=== PATIENT | male | born 1980 | race Caucasian/White ===

== ENCOUNTER 2022-08-08 11:18 | Emergency (ER) | payer SELFPAY ==
[2022-08-08 12:42] LABS: Bilirubin Neg (Negative); Blood, Urine Negative (Negative); Clarity Clear (Clear); Glucose, Urine (Dipstick) Normal (Negative); Ketone, Urine Negative (Negative); Leukocyte Negative (Negative); Nitrite Negative (Negative); Protein, Urine (Dipstick) 15 mg/dl (Neg-Trace); Specific Gravity, Urine 1.025 (1.005-1.030); Urobilinogen Normal mg/dL (Less than 2)
[2022-08-08] MEDS ORDERED: cefTRIAXone (ROCEPHIN) 500 MG VIAL ONE (14:36)
[2022-08-08] MEDS ORDERED: Acetaminophen 500 MG TAB ONE (15:16)
[2022-08-08] MEDS ORDERED: Ibuprofen 200 MG TAB ONE (15:16)
[2022-08-09 00:55] LABS: Chlam.trachomatis by PCR,Urine Not Detected (NotDetected); GC N.gonorrhoeae PCR,UrineVOID Not Detected (NotDetected)
== END 2022-08-08 15:20 | disposition home or self-care (01) ==
LOC: CSHERS 11:18
DX: N45.1 Epididymitis (principal); F17.210 Nicotine dependence, cigarettes, uncomplicated
CPT/HCPCS: 76870; 81003; 87086; 87491; 87591; 93976; 96372; J0696

== ENCOUNTER 2023-12-27 18:54 | Emergency (ER) | payer BC ==
[2023-12-27] MEDS ORDERED: Lorazepam 2 MG/ML VIAL ONE (19:08)
[2023-12-27] MEDS ORDERED: Ondansetron PF 4 MG/2 ML Vial ONE (19:14)
[2023-12-27 19:35] LABS: #Basophils 0.07 10x3/uL (0.0-0.2); #Eosinphils 0.48 10x3/uL (0.0-0.5); #Monocytes 0.89 10x3/uL (0.0-1.1); #Neutrophils 5.45 10x3/uL (1.5-8.4); %Basophils 0.6 % (0.0-2.0); %Eosinophils 3.9 % (0.0-6.0); %Lymphocytes 43.7 % (18.0-47.0); %Monocytes 7.2 % (0.0-10.0); %Neutrophils 44.3 % (40.0-75.0); Hematocrit 41.9 % (38.8-50.0); Mean Corpuscular HGB CONC 33.4 g/dL (32.0-36.0); Mean Corpuscular Volume 86.7 fL (81.2-95.1); Mean Platelet Volume 9.8 fL (7.4-10.4); Platelet Count 365 10x3/uL (150-450); RBC Distribution Width 12.4 % (11.5-14.5); Red Blood Cell (RBC) Count 4.83 10x6/uL (4.32-5.72); White Blood Cell (WBC) Count 12.3 10x3/uL (3.5-10.5)
[2023-12-27 19:36] LABS: ALT (SGPT) 21 U/L (8-55); AST (SGOT) 21 U/L (5-34); Albumin 4.1 g/dL (3.5-5.0); Alkaline Phosphatase 43 U/L (40-110); Anion Gap 19 mmol/L (10-20); BUN (Urea Nitrogen) 12 mg/dL (8.9-20.6); Bilirubin, Total 0.3 mg/dL (0.2-1.2); Calc. Creatinine Clearance 0 mL/min (70-130); Calcium 9.5 mg/dL (7.8-10.44); Carbon Dioxide 19 mmol/L (22-29); Chloride 106 mmol/L (98-107); Estimated GFR 77; Globulin 3.2 g/dL (2.4-3.5); Glucose 134 mg/dL (70-105); Potassium 3.6 mmol/L (3.5-5.1); Protein, Total 7.3 g/dL (6.0-8.3); Sodium 140 mmol/L (136-145)
[2023-12-27 19:42] LABS: Troponin I Less than 0.010 ng/mL (< 0.028)
== END 2023-12-27 20:25 | disposition home or self-care (01) ==
LOC: CSHERS 18:54
DX: F10.239 Alcohol dependence with withdrawal, unspecified (principal); F15.129 Other stimulant abuse with intoxication, unspecified; F17.210 Nicotine dependence, cigarettes, uncomplicated
CPT/HCPCS: 80053; 82550; 84443; 84484; 85025; 93005; 96361; 96374; J2060; J2405

== ENCOUNTER 2025-01-12 20:44 | Emergency (ER) | payer BC, OTHER ==
[2025-01-12] MEDS ORDERED: diphenhydrAMINE 50 MG/ML VIAL ONE (21:07)
[2025-01-12] MEDS ORDERED: Metoclopramide HCl 10 MG (2 mL) VIAL ONE (21:08)
[2025-01-12] MEDS ORDERED: Ketorolac Tromethamine 30 MG (1 mL) VIAL ONE (21:08)
[2025-01-12 21:33] LABS: #Basophils 0.03 10x3/uL (0.0-0.2); #Eosinophils 0.08 10x3/uL (0.0-0.5); #Monocytes 1.08 10x3/uL (0.0-1.1); #Neutrophils 2.85 10x3/uL (1.5-8.4); %Basophils 0.5 % (0.0-2.0); %Eosinophils 1.3 % (0.0-6.0); %Lymphocytes 33.7 % (18.0-47.0); %Monocytes 17.6 % (0.0-10.0); %Neutrophils 46.6 % (40.0-75.0); Hematocrit 40.0 % (38.8-50.0); Hemoglobin 13.8 g/dL (13.5-17.5); Mean Corpuscular Hemoglobin 29.4 pg (27.0-33.0); Mean Corpuscular Volume 85.3 fL (81.2-95.1); Platelet Count 276 10x3/uL (150-450); Red Blood Cell (RBC) Count 4.69 10x6/uL (4.32-5.72); White Blood Cell (WBC) Count 6.12 10x3/uL (3.5-10.5)
[2025-01-12 21:53] LABS: ALT (SGPT) 21 U/L (Less than 45); AST (SGOT) 20 U/L (11-34); Albumin 4.1 g/dL (3.1-4.5); Alkaline Phosphatase 47 U/L (40-110); Anion Gap 14 mmol/L (10-20); BUN (Urea Nitrogen) 10 mg/dL (8.9-20.6); Bilirubin, Total 0.5 mg/dL (0.3-1.2); Calc. Creatinine Clearance 0 mL/min (70-130); Calcium 8.7 mg/dL (7.8-10.44); Carbon Dioxide 24 mmol/L (22-29); Chloride 104 mmol/L (98-107); Globulin 3.3 g/dL (2.4-3.5); Glucose 98 mg/dL (70-105); Lipase 15 U/L (8-78); Potassium 3.7 mmol/L (3.5-5.1); Sodium 138 mmol/L (136-145)
== END 2025-01-12 22:33 | disposition home or self-care (01) ==
LOC: CSHERS 20:44
DX: A08.4 Viral intestinal infection, unspecified (principal)
CPT/HCPCS: 80053; 83690; 85025; 87428; 96365; 96375; J1200; J1885; J2765